=== PATIENT | male | born 1950 | race Caucasian/White ===

== ENCOUNTER → 2020-12-21 | Outpatient (CLI) | payer MEDICARE, BC ==
[2020-12-21] VITALS (11 sets, daily range): BP systolic 107–130; BP diastolic 71–83; PULSE 66–110; TEMP 98.1
[~2020-12-21] VITALS: Ht 188 cm; Wt 90.5 kg
[~2020-12-21] MED LIST: ASPIRIN E.C. 8181 MG PO; GLUCOPHAGE1000 MG PO; JARDIANCE10 PO; LIPITOR20 MG PO; ONE-A-DAY ESSE1 EACH PO; OZEMPIC0.25 MG/0. SQ
--- NOTE | 2020-12-21 12:55 | NUR ---
pt to ct per ambulation. Pt positioned in supine position. Monitors applied.
--- NOTE | 2020-12-21 13:05 | NUR ---
Dr Leone into room talks with pt.
--- NOTE | 2020-12-21 13:15 | NUR ---
Specimens obtained and placed in formalin and RPMI by Dr Leone. Specimen labeled.
== END ==
LOC: COL.RAD 11:32
DX: C64.1 Malignant neoplasm of right kidney, except renal pelvis (principal); R59.1 Generalized enlarged lymph nodes

== ENCOUNTER 2020-12-25 14:17 | Inpatient (IN) | payer MEDICARE, BC ==
[~2020-12-25] VITALS: Ht 185.4 cm; Wt 92.7 kg
[2021-01-23] VITALS (11 sets, daily range): BP systolic 112–137; BP diastolic 70–86; PULSE 69–98; TEMP 97.1–98.6
[2021-01-23 10:45] LABS: BASO # 0.1 K/mm3 (0.0-0.2); BASO % 0.9 % (0.0-2.0); EOS # 0.1 K/mm3 (0.0-0.7); EOS % 1.3 % (0-4.0); GRAN # 4.2 K/mm3 (1.4-6.5); HEMATOCRIT 45.2 % (42.0-52.0); HEMOGLOBIN 15.1 g/dl (13.5-18.0); LYMPH # 2.7 K/mm3 (1.2-3.4); LYMPH % 34.8 % (20.0-51.0); MEAN CELL VOLUME 92 fl (80.0-100.0); MEAN CORPUSCULAR HEMOGLOBIN 31 pg (27.0-31.0); MEAN CORPUSCULAR HGB CONC 33 g/dl (33.0-37.0); MEAN PLATELET VOLUME 10.9 fl (7.4-10.4); MONO # 0.7 K/mm3 (0.1-0.6); MONO % 8.7 % (1.7-9.3); PLATELET COUNT 133 K/mm3 (130-400); RED BLOOD COUNT 4.94 M/mm3 (4.20-5.60)
[2021-01-23 10:53] LABS: CALCIUM 10.4 mg/dL (8.4-10.2); CREATININE, serum 1.04 mg/dL (0.72-1.25)
--- NOTE | 2021-01-23 15:30 | NUR ---
PT ALERT, DROWSY FROM OPERATIVE MEDICATIONS. ORIENTATION QUESTIONS HARD TO OBTAIN. PT REFUSING TO STATE NAME AND BIRTHDAY STATING "I DON'T GIVE A SHIT." NOTED DIMINISHED BREATH SOUNDS IN UPPER LOBES, BASES CLEAR BILATERALLY. PT HAS 8 LAP SITES, CLEAN DRY, INTACT. ABDOMEN SOFT TO PALPATION. LAP SITES COVERED WITH BANDAIDS X7, ONE COVERED WITH GAUZE. ALL DRESSINGS CLEAN, DRY, INTACT. PT HAS SMITH CATHTER IN PLACE, DRAINING CLEAR YELLOW. PT REPORTS DISCOMFORT, MEDICATION GIVEN PER ORDERS. CALL LIGHT WITHIN REACH. PT AND DAUGHTER AT BEDSIDE.
--- NOTE | 2021-01-23 15:38 | NUR ---
Patient arrives to room 343 from PACU. Opens eyes to verbal stimuli. Able to follow directions. and daughter arrive to bedside. VSS, see post op checks. Incisions abdomen, 7 with bandaids, and one with gauze and tegaderm, all clean dry and intact. Oriented to room and call light system. Call light within reach. Reprot given to RADHA Li, questions answered.
--- NOTE | 2021-01-23 16:12 | NUR ---
RECEIVED REPORT FROM RADHA TELLEZ.
--- NOTE | 2021-01-24 00:50 | NUR ---
ALERT AND OX4. LOGAN CHEST PAIN, SOA OR DIZZY. PAIN RATE 5/10, LOWER ABD AND RT SHOULDER. ENC TO CHEW GUM AND MOVE FOR GAS PAIN. PM MEDS GIVEN. AT BEDSIDE. SCD ON FOR VTE. DSG TO ABD C/D/I, FINN. SMITH CATH TO DD. SAT UP THIS EVENING FOR 2 HRS. LEFT AC RUNNING FLUIDS. CALL LIGHT WI REACH.
[2021-01-24 04:31] VITALS: BP 125/68; PULSE 70; TEMP 98.6
[2021-01-24 06:40] LABS: HEMATOCRIT 44.1 % (42.0-52.0); HEMOGLOBIN 14.8 g/dl (13.5-18.0)
[2021-01-24 06:57] LABS: CALCIUM 10.2 mg/dL (8.4-10.2); CREATININE, serum 1.63 mg/dL (0.72-1.25); POTASSIUM 5.2 mmol/L (3.5-4.5)
[2021-01-24 07:29] VITALS: BP 133/71; PULSE 78; TEMP 98.2
--- NOTE | 2021-01-24 08:02 | NUR ---
Patient sitting up at edge of bed. rounded. Plan of care reviewed. Carmen García per orders. Patient offered a walk, but wanting to wait until his comes this am & bring palizbeths. Patient ordered diabetic diet, I encouraged him to take it slow. He denies yet passing flatus. He does have shoulder discomfort, but denies pain. Lap site dressing Cdi. Will monitor.
--- NOTE | 2021-01-24 09:27 | NUR ---
Patient sitting up in bed. He ate dounuts that his had brought him. He and his ambulated the halls. No flatus. kpad provided for shoulder pain. Will monitor.
[2021-01-24 11:42] VITALS: BP 135/73; PULSE 83; TEMP 98.3
--- NOTE | 2021-01-24 12:45 | NUR ---
Patient working on lunch. Continues to have right shoulder discomfort. at bedside.
--- NOTE | 2021-01-24 14:35 | NUR ---
Patient reports pain becoming unbearable. I spoke with and made him aware. MOM per orders. Morphine & roxicodone for patient, so he can rest.
--- NOTE | 2021-01-24 15:50 | NUR ---
Patient resting at this time. Requesting to be left alone and not be bothered at this time
[2021-01-24 17:10] VITALS: BP 138/73; PULSE 72; TEMP 98.8
--- NOTE | 2021-01-24 18:36 | NUR ---
Patient ambulated halls again with his . Shoulder discomfort continues. One tab roxicodone for pain managed. Dinner ordered. No flatus or belching. Continues to follow eras. Will report off to nightnurse.
[2021-01-24 20:04] VITALS: BP 134/75; PULSE 78; TEMP 98.7
[2021-01-24 23:34] VITALS: BP 128/69; PULSE 74; TEMP 98.5
[2021-01-25 03:23] VITALS: BP 131/74; PULSE 74; TEMP 98.5
[2021-01-25 06:42] LABS: BASO % 0.4 % (0.0-2.0); EOS % 0.4 % (0-4.0); GRAN # 6.3 K/mm3 (1.4-6.5); GRAN % 64.1 % (42.2-75.2); HEMATOCRIT 42.8 % (42.0-52.0); LYMPH # 2.6 K/mm3 (1.2-3.4); LYMPH % 26.4 % (20.0-51.0); MEAN CELL VOLUME 94 fl (80.0-100.0); MEAN CORPUSCULAR HEMOGLOBIN 31 pg (27.0-31.0); MEAN CORPUSCULAR HGB CONC 33 g/dl (33.0-37.0); MEAN PLATELET VOLUME 11.5 fl (7.4-10.4); MONO # 0.8 K/mm3 (0.1-0.6); MONO % 8.4 % (1.7-9.3); PLATELET COUNT 126 K/mm3 (130-400); RED BLOOD COUNT 4.56 M/mm3 (4.20-5.60); REDCELL DISTRIBUTION WIDTH-CV 13.5 % (11.5-14.5)
[2021-01-25 07:08] VITALS: BP 117/70; PULSE 68; TEMP 98.3
[2021-01-25 07:09] LABS: CALCIUM 10.1 mg/dL (8.4-10.2); CREATININE, serum 1.7 mg/dL (0.72-1.25); POTASSIUM 4.9 mmol/L (3.5-4.5)
--- NOTE | 2021-01-25 07:45 | NUR ---
Pt assessment complete. Pt sitting up on the side of the bed upon entry, he has been up ambulating in the hallways. He is A/O x4. His breathing is even and unlabored on RA. Pt is having abdominal discomfort, not passing any gas but feels that he feels he needs to belch. Patient has been ambulating to attempt to pass gas, chewing gum and using k pad to abdomen. Discussed clear liquid diets with advancement if passing gas as an option to the patient. Pt hoping to see Dr. Burgess prior to making a decision. Would like to shower later today. No needs at this time. Call light within reach.
--- NOTE | 2021-01-25 10:17 | NUR ---
political worker met with patient to discuss discharge plan. Patient's Ann ([phone]) present at bedside. Patient reports that prior to admit he has been fully independent with his ADL's and he does not utilize any DME to assist with mobility and has no oxygen needs. agree's. PCP is Dr. Surjit Celis and utilizes [facility] with no cost difficulty. Ann reports that they do have a [facility] established and that she is his agent along with their daughter Neva. Patient is planning on returning home upon dc. Discharge plan: Home with spouse
--- NOTE | 2021-01-25 13:00 | NUR ---
Pt starting to have nausea, PRN Zofran administered. Educated patient on intake of solids vs liquids, advised patient to try and stick to liquids until passing gas. Pt continues to try all remedies, walking, heating pack and chewing gum. Xray just taken of abdomen. No further needs.
[2021-01-25 13:07] VITALS: BP 125/69; PULSE 75; TEMP 98.8
--- NOTE | 2021-01-25 13:16 | NUR ---
First visit from the senior examiner. No needs right now.
[2021-01-25 15:58] VITALS: BP 125/76; PULSE 76; TEMP 98.7
[2021-01-25 19:20] VITALS: BP 132/75; PULSE 83; TEMP 99.3
--- NOTE | 2021-01-25 20:00 | NUR ---
PATIENT IS ALERT AND ORIENTED X4. PATIENT UP WALKING HALLWAYS. PATIENT HAS 5 LAP SITES AND MIDLINE INCISION. EDGES WELL APPROXIMATED, OPEN TO AIR. PATIENT HAD BOWEL MOVEMENT. PATIENT HAS IV TO LEFT HAND INT. PATIENT DENIES PAIN OR FURTHER NEEDS AT THIS TIME. CALL LIGHT WITHIN REACH. HEAD TO TOE ASSESSMENT COMPLETE.
[2021-01-25 23:59] VITALS: BP 109/63; PULSE 75; TEMP 98
[2021-01-26 03:50] VITALS: BP 116/68; PULSE 71; TEMP 98.4
--- NOTE | 2021-01-26 06:04 | NUR ---
PATIENT STATES HE IS FEELING BETTER THIS MORNING AND MIGHT ORDER BREAKFAST. AT BEDSIDE. WILL REPORT TO DAYSPRFT
[2021-01-26 07:32] VITALS: BP 109/67; PULSE 66; TEMP 98.8
--- NOTE | 2021-01-26 08:00 | NUR ---
Patient walking in the hallway, independently and tolerating well. Reporting having distention in abdomen, denies pain. A&Ox4. VSS. IV CDI. States that he feels better today. Is hoping to go home today and has been walking in the hallway several times this am. No further needs expressed. Call light within reach
[2021-01-26 11:08] VITALS: BP 96/61; PULSE 68; TEMP 98.4
--- NOTE | 2021-01-26 11:30 | NUR ---
Discharge paperwork reviewed with the patient and family. Patient verbalized an understanding to follow doctors orders. IV removed, tip intact. Gauze and coban applied. No further needs expressed. Call light within reach
--- NOTE | 2021-01-26 12:19 | NUR ---
Patient ambulated to the ICU with the nurse. Neva Alvares RN walked the patient to the front entrance. No further needs expressed.
== END 2021-01-26 12:20 | disposition home or self-care (01) | DRG 657 ==
LOC: SURG 01-23 08:57 → INPTSU 01-23 08:57 → SURG 01-23 11:45
PROVIDERS: ADMIT Urology
PROC: 8E0W4CZ Robotic Assisted Procedure of Trunk Region, Percutaneous Endoscopic Approach (ICD-10-PCS; 2021-01-23)
PROC: 0TT04ZZ Resection of Right Kidney, Percutaneous Endoscopic Approach (ICD-10-PCS; principal; 2021-01-23 11:45)
DX: C64.1 Malignant neoplasm of right kidney, except renal pelvis (principal); K56.7 Ileus, unspecified; C91.10 Chronic lymphocytic leukemia of B-cell type not having achieved remission; N28.9 Disorder of kidney and ureter, unspecified
CPT/HCPCS: A4314; A9284; J0330; J0690; J1100; J1815; J2250; J2270; J2405; J2704; J2765; J2795; J3010; J7120

== ENCOUNTER → 2023-12-17 | Outpatient (CLI) | payer MEDICARE, BC ==
[~2023-12-17] MED LIST changes: +Iohexol 300 - 100 ML VIAL IV ONE; +NS 100 ML IV SCH
== END ==
LOC: COL.RAD 08:30
DX: C91.10 Chronic lymphocytic leukemia of B-cell type not having achieved remission (principal); R16.1 Splenomegaly, not elsewhere classified; R59.1 Generalized enlarged lymph nodes
CPT/HCPCS: Q9967